=== PATIENT | female | born 2000 ===

== ENCOUNTER 2023-08-11 19:17 | Outpatient (CLI) | payer OTHER ==
--- NOTE | 2023-08-12 08:52 | Ultrasound Report ---
PROCEDURE: Pelvic w/Transvaginal INDICATIONS: IRREGULAR MENSTRATION TECHNIQUE: Real-time scanning was performed of the pelvic organs, with image documentation. COMPARISON: None. FINDINGS: Uterus: Uterus is anteverted and normal in size at 8.9 x 3.4 x 4.4 cm. The myometrium is homogeneou s. The endometrium measures 9 mm in combined thickness. Ovaries: The right ovary measures 2.8 x 2.3 x 4.1 cm, with a calculated ovarian volume of 14 cc. Th e left ovary measures 3.6 x 2.2 x 3.4 cm, with a calculated ovarian volume of 14 cc. Mildly complex r ight adnexal follicle measuring 1.6 x 1.4 cm. Less than 12 follicles can be seen in each ovary. No adnexal masses are seen. No cystic lesions measuring greater than 3 cm. Other: No pathologic free abdominal or pelvic fluid. IMPRESSION: Mildly complex right ovarian follicle measuring 1.6 x 1.4 cm, presumably degenerating or hemorrhagic cyst. Given internal complexity, recommend follow-up in 6-12 weeks per consensus guidelines. Reviewed by: Steven Campoverde MD on 08/12/2023 8:51 AM PDT Approved by: Steven Campoverde MD on 08/12/2023 8:51 AM PDT Station ID: [id number]
== END 2023-08-11 19:18 | disposition home or self-care (01) ==
LOC: DI 19:17
PROVIDERS: ATTEND Nurse Practitioner Family
DX: N92.6 Irregular menstruation, unspecified (principal)

== ENCOUNTER 2023-10-15 15:51 | Outpatient (CLI) | payer OTHER ==
--- NOTE | 2023-10-16 16:33 | Ultrasound Report ---
PROCEDURE: Pelvic w/Transvaginal INDICATIONS: IRREGULAR MENSTRATION TECHNIQUE: Real-time scanning was performed of the pelvic organs, with image documentation. Additional endovagi nal scanning was necessary due to incomplete visualization of the adnexal and endometrial structures by transabdominal scanning. COMPARISON: Pelvic ultrasound 08/11/2023 FINDINGS: Uterus: Uterus is anteverted and normal in size at 7.9 x 3.2 x 4.5 cm. The myometrium is homogeneou s. The endometrium measures 6 mm in combined thickness. Nabothian cysts. Ovaries: The right ovary measures 3.9 x 2.1 x 2.1 cm, with a calculated ovarian volume of 8.9 cc. T he left ovary measures 3.8 x 2.5 x 2.6 cm, with a calculated ovarian volume of 12.7 cc. The ovaries have a normal sonographic appearance. Greater than 12 follicles can be seen in each ovary. No adnex al masses are seen. No cystic lesions measuring greater than 3 cm. Other: No pathologic free abdominal or pelvic fluid. IMPRESSION: Greater than 12 follicles are identified bilaterally. This appears more prominent when compared to pr ior exam. This could represent hyperstimulation. Reviewed by: Shelley Pisano MD on 10/16/2023 4:31 PM PDT Approved by: Shelley Pisano MD on 10/16/2023 4:31 PM PDT Station ID: [id number]
== END 2023-10-15 15:52 | disposition home or self-care (01) ==
LOC: DI 15:51
PROVIDERS: ATTEND Nurse Practitioner Family
DX: N92.6 Irregular menstruation, unspecified (principal)